=== PATIENT | female | born 1980 | race African-American/Black ===

== ENCOUNTER 2017-04-11 15:48 | Emergency (ER) | payer MEDICAID, OTHER ==
[2017-04-11] VITALS (11 sets, daily range): BP systolic 105–113; BP diastolic 56–66; PULSE 94–110; RESP 17–20
[~2017-04-11 15:48] MED LIST: PREN1CAP33 PO
--- NOTE | 2017-04-11 16:38 | PD ---
HPI Chief Complaint contractions Date Seen: Apr 11, 2017 Time Seen: 16:44 (Wilner Trujillo MD) Travel History International Travel<30 Days: No Contact w/Intl Traveler<30Days: No (Wilner Trujillo MD) History of Present Illness HPI 36 y/o at 34/4 weeks presents with contractions. She states that she was taking a shower last night and slipped, but caught herself against the wall. Denies any actual fall. Denies hitting her abdomen. She caught herself with her hands before falling. Since then, she states she's been having contractions every hour or two. Denies any vaginal bleeding, loss of fluids. Endorses movement. She sees [facility]. Denies any problems during this . Ever since she slipped, she has been having pelvic pressure as well. This is constant and having pelvic pain, 6/10 during the contractions. Otherwise, denies any fever/chills, chest pain, SOB, dysuria, leg pain/swelling. Weeks Gestation: 34 Para: 2 : 3 (Wilner Trujillo MD) History Past Medical History Medical History: Denies Significant Hx (Wilner Trujillo MD) Obstetric History Obstetric History 2 SVDs at term (Wilner Trujillo MD) Past Surgical History Surgical History: No Previous Surgery (Wilner Trujillo MD) Family History Family History: Negative (Wilner Trujillo MD) Social History Alcohol Use: No Tobacco Use: Yes (avg 5 cigs/day) Substance Abuse: No (Wilner Trujillo MD) Allergies-Medications (Allergen,Severity, Reaction): Coded Allergies: No Known Allergies (Verified Adverse Reaction, Unknown, 04/11/17) Home Meds Active Scripts Vit W/ Fe Polysacch C (Vitafol Fe+ 90-1-200 & 50 mg) 90 Mg Iron-1 Mg- 50 Mg-200 Mg Cap, 1 TAB PO DAILY, #30 BOTTLE 11 Refills Prov:Eunice Alfred 11/07/16 Review of Systems General / Constitutional: Weight Gain, No: Fever, Weight Loss, Chills, Other Eyes: No: Diploplia, Blurred Vision, Visual changes, Pain, Photophobia HENT: No: Headaches, Vertigo, Lightheadedness Cardiovascular: No: Irregular Rhythm, Chest Pain or Discomfort, Palpitations, Tachycardia, Syncope, Varicosities, Edema, Cyanosis Respiratory: No: Cough, Short of Breath, Other Gastrointestinal: No: Nausea, Vomiting, Diarrhea Genitourinary: Pelvic Pain, No: Urgency, Frequency, Dysuria, Decreased Urinary Output, Oliguria, Incontinence, Discharge, Vaginal Bleeding Musculoskeletal: No: Limited ROM, Weakness, Cramping, Edema, Pain Skin: No Rash, No Itching, No Dryness, No Lumps, No Change in Pigmentation, No Change in Nails, No Alopecia, No Lesions Neurologic: No: Weakness, Dizziness, Syncope, Focal Abnormalities, Coordination Problem, Headache, Slurred Speech, Seizures Psychiatric: No: Depression, Suicidal Ideations, Homicidal Ideation Endocrine: No: Heat Intolerance, Cold Intolerance, Polydipsia, Polyuria, Other (Wilenr Trujillo MD) Physical Exam Narrative GENERAL: Well-nourished, well-developed patient. SKIN: Warm and dry. HEAD: Normocephalic and atraumatic. EYES: No scleral icterus. No injection or drainage. ENT: No nasal drainage noted. Mucous membranes pink. Airway patent. NECK: Supple, trachea midline. No JVD. CARDIOVASCULAR: Regular rate and rhythm without murmurs, gallops, or rubs. RESPIRATORY: Breath sounds equal bilaterally. No accessory muscle use. ABDOMEN/GI: Abdomen soft, non-tender, bowel sounds present, no rebound, no guarding Gravid to 34 weeks size GENITOURINARY: External Genitalia: intact and normal in appearance Cervix: thick, high Dilatation: 0 Effacement: 0 Station: -2 Presentation: vertex Membranes: intact Uterine Contractions: q5-10 minutes FHT's: Category: 1 Baseline: 140 Reactive: yes Variability: moderate Decels: none EXTREMITIES: No cyanosis or edema. BACK: Nontender without obvious deformity. No CVA tenderness. NEUROLOGICAL: Awake and alert. Motor and sensory grossly within normal limits. Five out of 5 muscle strength in all muscle groups. Normal speech. (Wilner Trujillo MD) Data Data Vital Signs Reviewed: Yes (Wilner Trujillo MD) [facility] Medical Record Reviewed: Yes Interpretation(s) 36 y/o at 34/4 weeks presents with contractions. Category 1 FHT Cervical exam: 0/0/-2 -Monitor FHT for resolution of contractions -Urine dip -1L LR bolus, 50mcg Fentanyl IV, 0.25mg Terb SQ (Wilner Trujillo MD) Diagnosis Diagnosis: Primary Impression: contractions Additional Impression: 34 weeks gestation of Disposition: 01 DISCHARGE HOME Condition: Stable Wilner Trujillo MD Apr 11, 2017 16:38 Arnulfo Fraser II, MD Apr 11, 2017 18:20
[2017-04-11] MEDS ORDERED: LACTATED RINGER'S 1000 ML INJ 1,000 ML IV ONE (16:45)
[2017-04-11] MEDS ORDERED: TERBUTALINE INJ 1 MG/ML AMP SQ ONE ×2 (16:45→18:00)
== END 2017-04-11 19:22 | disposition home or self-care (01) ==
LOC: HOBED 15:48
DX: O47.03 False labor before 37 completed weeks of gestation, third trimester (principal); Z3A.34 34 weeks gestation of pregnancy
CPT/HCPCS: 59025; 96372; 96374; 99284; J3010; J3105; J7120

== ENCOUNTER 2017-05-13 00:47 | Emergency (ER) | payer MEDICAID ==
--- NOTE | 2017-05-13 01:33 | PD ---
HPI Chief Complaint Possible rupture membranes Date Seen: May 13, 2017 Time Seen: 01:29 Travel History International Travel<30 Days: No Contact w/Intl Traveler<30Days: No Known Affected Area: No History of Present Illness HPI 36-year-old who is at 39 weeks 1 day comes in due to watery vaginal discharge per vagina that occurred while she was in the shower. Patient states that no further fluid was expelled and denies any regular contractions although she has had a couple of irregular contractions. Last cervical exam was done and she was 1 cm. She does not know the results of her group B strep but she states she has had an uncomplicated course Weeks Gestation: 39 Para: 2 : 3 History Past Medical History Medical History: Denies Significant Hx Obstetric History Obstetric History Spontaneous vaginal delivery 2 Past Surgical History Surgical History: No Previous Surgery Family History Family History: Negative Social History Alcohol Use: No Tobacco Use: No Substance Abuse: No Allergies-Medications (Allergen,Severity, Reaction): Coded Allergies: No Known Allergies (Verified Adverse Reaction, Unknown, 04/11/17) Home Meds Active Scripts Vit W/ Fe Polysacch C (Vitafol Fe+ 90-1-200 & 50 mg) 90 Mg Iron-1 Mg- 50 Mg-200 Mg Cap, 1 TAB PO DAILY, #30 BOTTLE 11 Refills Prov:Eunice Alfred 11/07/16 Review of Systems Except as stated in HPI: all other systems reviewed are Neg Physical Exam Narrative GENERAL: Well-nourished, well-developed patient. SKIN: Warm and dry. HEAD: Normocephalic and atraumatic. EYES: No scleral icterus. No injection or drainage. ENT: No nasal drainage noted. Mucous membranes pink. Airway patent. NECK: Supple, trachea midline. No JVD. CARDIOVASCULAR: Regular rate and rhythm without murmurs, gallops, or rubs. RESPIRATORY: Breath sounds equal bilaterally. No accessory muscle use. ABDOMEN/GI: Abdomen soft, non-tender, bowel sounds present, no rebound, no guarding Gravid to [-] weeks size 39 Fundal Height: [-] GENITOURINARY: External Genitalia: intact and normal in appearance BUS glands: [-] Normal Cervix: [-] Posterior Dilatation: [-] 1 Effacement: [-] 50 Station: [-] -3 Presentation: [-] Vertex Membranes: [intact or ruptured] intact with a negative amateur Uterine Contractions: [-] Occasional irregular FHT's: Category: [-] 1 Baseline: [-] 130 Reactive: [-] Moderate Variability: [-] Moderate Decels: [-] Absent EXTREMITIES: No cyanosis or edema. BACK: Nontender without obvious deformity. No CVA tenderness. NEUROLOGICAL: Awake and alert. Motor and sensory grossly within normal limits. Five out of 5 muscle strength in all muscle groups. Normal speech. Data Data Vital Signs Reviewed: Yes [facility] Medical Record Reviewed: Yes Plan 36-year-old at 39 weeks 1 day with intact amniotic membranes, clinically patient has not ruptured and is her and be sure is negative Cervix is unchanged at 1 cm and there are no signs of labor Follow up with OB provider as scheduled on Sunday Diagnosis Diagnosis: Primary Impression: 39 weeks gestation of Additional Impression: Intact amniotic membranes during in third trimester Disposition: DISCHARGE HOME Carmen Mcgowan MD May 13, 2017 01:32
== END 2017-05-13 01:48 | disposition home or self-care (01) ==
LOC: HOBED 00:47
DX: O26.893 Other specified pregnancy related conditions, third trimester (principal); Z3A.39 39 weeks gestation of pregnancy
CPT/HCPCS: 59025; 84112

== ENCOUNTER 2017-05-14 00:18 | Inpatient (IN) | payer MEDICAID ==
[2017-05-14] VITALS (55 sets, daily range): BP systolic 89–127; BP diastolic 42–79; PULSE 66–192; RESP 16–20; TEMP 98.5–98.8
[~2017-05-14] VITALS: Ht 170.2 cm; Wt 104.0 kg
[2017-05-14] MEDS ORDERED: LACTATED RINGER'S 1000 ML INJ 1,000 ML IV PRN (00:57)
[2017-05-14] MEDS ORDERED: SODIUM CHLORID 0.9% 500 ML INJ 500 ML IV PRN (01:00)
[2017-05-14] MEDS ORDERED: ONDANSETRON HCL 4 MG/2 ML VIAL IV PUSH PRN (01:00)
[2017-05-14] MEDS ORDERED: MINERAL OIL 10 ML VIAL TOPICAL PRN (01:00)
[2017-05-14] MEDS ORDERED: LIDOCAINE HCL 1% 50 ML VIAL INFIL PRN (01:00)
[2017-05-14] MEDS ORDERED: OXYTOCIN 30 UNITS-500ML PREMIX 500 ML IV ONE (01:00)
[2017-05-14] MEDS ORDERED: LIDOCAINE HCL 1% 50 ML VIAL I-DERMAL PRN (01:00)
[2017-05-14] MEDS ORDERED: CITRIC ACID-SODIUM CITRATE LIQ 30 ML UDC PO SCH (01:00)
[2017-05-14] MEDS ORDERED: SODIUM CHLOR 0.9% 1000 ML INJ 1,000 ML IV PRN (01:17)
[2017-05-14 01:49] LABS: AUTOMATED NEUTROPHIL # 4.7 TH/MM3 (1.8-7.7); BASOPHIL # 0.1 TH/MM3 (0-0.2); BASOPHIL % 0.6 % (0.0-2.0); EOSINOPHIL # 0.1 TH/MM3 (0-0.4); HEMATOCRIT 33.2 % (35.0-46.0); HEMOGLOBIN 11.3 GM/DL (11.6-15.3); MEAN CELL VOLUME 92.9 FL (80.0-100.0); MEAN CORPUSCULAR HEMOGLOBIN 31.6 PG (27.0-34.0); MEAN PLATELET VOLUME 7.2 FL (7.0-11.0); MONO % 10.5 % (0.0-8.0); MONOCYTE # 0.9 TH/MM3 (0-0.9); NEUT % 53.9 % (16.0-70.0); PLATELET COUNT 326 TH/MM3 (150-450); RED BLOOD COUNT 3.57 MIL/MM3 (4.00-5.30); RED CELL DISTRIBUTION WIDTH 14.4 % (11.6-17.2); WHITE BLOOD COUNT 8.8 TH/MM3 (4.0-11.0)
[2017-05-14 01:53] LABS: BACTERIA, URINE OCC /hpf; BILIRUBIN, URINE NEG (NEG); BLOOD, URINE NEG (NEG); GLUCOSE,URINE NEG (NEG); KETONE, URINE NEG (NEG); MUCUS URINE FEW /lpf (OCC); NITRITE,URINE NEG (NEG); SQUAMOUS EPITHELIAL CELL URINE 20 /hpf (0-5); URINE COLOR YELLOW (YELLW/STRAW); URINE LEUKOCYTE ESTERASE TRACE (NEG)
[2017-05-14] MEDS ORDERED: fentaNYL 2MCG-BUPIV 0.125% INJ 100 ML ONE (01:55)
--- NOTE | 2017-05-14 01:57 | HHI.HP ---
History & Physical H&P HPI Chief Complaint ctxs Date Seen: May 14, 2017 Time Seen: 01:49 Travel History International Travel<30 Days: No Contact w/Intl Traveler<30Days: No Known Affected Area: No History of Present Illness HPI pt. is a 36 y/o @ 39 2/7 weeks present w/ c/o ctxs. pt. previously seen on am 3/4 w/ ctxs and 1 cm. present now w/ increasing freq and intensity. +FM, no lof/vb. per nursing cervix 4 cm and pt. very uncomfortable. Weeks Gestation: 39 Para: 2 : 3 History (Limited) History Past Medical History Medical History: Denies Significant Hx Obstetric History Obstetric History , x 2 Past Surgical History Surgical History: No Previous Surgery Family History Family History: Negative Social History Alcohol Use: No Tobacco Use: Yes Substance Abuse: No Allergies-Medications Allergies-Medications (Allergen,Severity, Reaction): Coded Allergies: No Known Allergies (Verified Adverse Reaction, Unknown, 05/14/17) Home Meds Active Scripts Vit W/ Fe Polysacch C (Vitafol Fe+ 90-1-200 & 50 mg) 90 Mg Iron-1 Mg- 50 Mg-200 Mg Cap, 1 TAB PO DAILY, #30 BOTTLE 11 Refills Prov:Eunice Alfred 11/07/16 ROS Review of Systems Except as stated in HPI: all other systems reviewed are Neg Physical Exam Physical Exam Narrative GENERAL: Well-nourished, well-developed patient. SKIN: Warm and dry. HEAD: Normocephalic and atraumatic. EYES: No scleral icterus. No injection or drainage. ENT: No nasal drainage noted. Mucous membranes pink. Airway patent. NECK: Supple, trachea midline. No JVD. CARDIOVASCULAR: Regular rate and rhythm without murmurs, gallops, or rubs. RESPIRATORY: Breath sounds equal bilaterally. No accessory muscle use. ABDOMEN/GI: Abdomen soft, non-tender, bowel sounds present, no rebound, no guarding Gravid GENITOURINARY: Dilatation: 4 Effacement: 60 Station: 0 Presentation: cephalic Membranes: intact Uterine Contractions: q 3 min FHT's: Category: 2 Reactive: + Variability: mod Decels: miguel ángel EXTREMITIES: No cyanosis or edema. BACK: Nontender without obvious deformity. No CVA tenderness. NEUROLOGICAL: Awake and alert. Motor and sensory grossly within normal limits. Five out of 5 muscle strength in all muscle groups. Normal speech. Data Data Data Vital Signs Reviewed: Yes Orders Orders Ob (2e) Additional Admit Info (05/14/17 00:57) Admit To Inpatient (05/14/17 ) Vital Signs (Adult) .Per protocol (05/14/17 00:57) Heart (05/14/17 00:57) Amnioinfusion (05/14/17 00:57) Urinary Catheter Management .ONCE (05/14/17 00:57) Diet Liquid (05/14/17 Breakfast) Lactated Ringer's 1000 Ml Inj (Lr 1000 M (05/14/17 00:57) Lactated Ringer's 1000 Ml Inj (Lr 1000 M (05/14/17 00:57) Sodium Chlorid 0.9% 500 Ml Inj (Ns 500 M (05/14/17 01:00) Sodium Chlor 0.9% 1000 Ml Inj (Ns 1000 M (05/14/17 01:17) Lidocaine 1% Inj (50 Ml) (Xylocaine 1% I (05/14/17 01:00) Citric Acid-Sodium Citrate Liq (Bicitra (05/14/17 01:00) Ondansetron Inj (Zofran Inj) (05/14/17 01:00) Fentanyl Inj (Fentanyl Inj) (05/14/17 01:00) Fentanyl Inj (Fentanyl Inj) (05/14/17 01:00) Complete Blood Count With Diff (05/14/17 00:57) Hold Clot (05/14/17 00:57) Abo/Rh Blood Type (05/14/17 00:57) Urinalysis - C+S If Indicated (05/14/17 00:57) Drug Screen, Random Urine (05/14/17 00:57) Ob/Psych Drug Screen, Urine (05/14/17 00:57) Resp Oxygen Non Rebreathe Mask (05/14/17 ) ^ Epidural / Intrathecal Infus (05/14/17 00:57) Oxytocin 30 Units-500ml Premix (Pitocin (05/14/17 01:00) Lidocaine 1% Inj (50 Ml) (Xylocaine 1% I (05/14/17 01:00) Light Mineral Oil (Muri-Lube Oil) (05/14/17 01:00) Inpatient Certification (05/14/17 ) Labs Laboratory Tests Test 05/14/17 00:25 05/14/17 01:35 [facility] Medical Record Reviewed: Yes Plan pt. in active labor. pt. to be admitted. pt. gbs unknown at term, no tx. efm/ peter. fht reassuring. will continue to follow. Diagnosis Diagnosis: Primary Impression: Uterine contractions during Additional Impression: 39 weeks gestation of Kp Woodson Jr., MD May 14, 2017 01:57
[2017-05-14] MEDS: LACTATED RINGER'S 1000 ML INJ 1,000 ML IV SCH ×2 (02:22→07:40)
[2017-05-14] MEDS ORDERED: fentaNYL 2MCG-BUPIV 0.125% 100 ML EPIDURAL SCH (02:45)
[2017-05-14] MEDS ORDERED: DO NOT ADMINISTER ANTICOAGULANTS PRN (02:45)
[2017-05-14] MEDS ORDERED: NO SYSTEM NARCOTICS PRN (02:45)
[2017-05-14] MEDS ORDERED: ePHEDrine/NS 25 MG/5 ML SYRINGE IV PUSH PRN (03:00)
--- NOTE | 2017-05-14 08:14 | PD.LABORPN ---
Subjective Subjective pt. comfortable in bed. pt. receive epidural ~0220. +FM, no vb. pt. feeling pelvic pressure. Objective Vital Signs Vital Signs Date Time Temp Pulse Resp B/P (MAP) Pulse Ox O2 Delivery O2 Flow Rate FiO2 05/14/17 07:32 78 17 109/71 (84) 05/14/17 07:15 84 119/66 (83) 05/14/17 06:45 81 110/72 (85) 05/14/17 06:34 18 05/14/17 06:30 78 05/14/17 06:16 116/71 (86) 05/14/17 06:16 137 05/14/17 06:01 79 102/54 (70) 05/14/17 05:45 98.7 78 120/68 (85) 05/14/17 05:34 20 05/14/17 05:30 72 05/14/17 05:08 18 05/14/17 05:00 90 93/56 (68) 05/14/17 04:45 82 96/64 (75) 05/14/17 04:35 16 05/14/17 04:30 76 92/46 (61) 05/14/17 04:15 98.5 77 106/54 (71) 05/14/17 04:14 16 05/14/17 04:00 79 98/54 (69) 05/14/17 03:49 74 105/52 (69) 05/14/17 03:45 18 05/14/17 03:44 73 93/51 (65) 05/14/17 03:30 79 89/43 (58) 05/14/17 03:17 18 05/14/17 03:15 75 93/42 (59) 05/14/17 03:00 74 18 05/14/17 02:45 18 05/14/17 02:45 101/49 (66) 05/14/17 02:45 80 05/14/17 02:39 82 107/55 (72) 05/14/17 02:31 91/45 (60) 05/14/17 02:28 121/70 (87) 05/14/17 02:24 86 05/14/17 02:24 109/63 (78) 05/14/17 02:22 18 05/14/17 02:21 92/69 (77) 05/14/17 02:19 73 115/60 (78) 05/14/17 02:18 20 05/14/17 02:17 84 119/62 (81) 05/14/17 02:00 82 05/14/17 01:59 124/64 (84) 05/14/17 01:59 84 20 Objective Pelvic Exam: Dilatation: 9 (thick, anterior lip) Effacement: 100 Station: 0 Presentation: cephalic Membranes: ruptured Uterine Contractions: q2-3min FHT's: Category: 2 Baseline: 130 Reactive: + Variability: mod Decels: miguel ángel Weeks Gestation: 39 Medical induction of labor?: No Assessment/Plan Problem List: (1) 39 weeks gestation of ICD Codes: Z3A.39 - 39 weeks gestation of Status: Acute (2) Uterine contractions during ICD Codes: O62.2 - Other uterine inertia Status: Acute Assessment and Plan 36 y/o in active labor. pt. progressing will allow pt. to labor down as still has anterior lip. pt. cat 2 tracing 2/2 variables. fht reassuring. will continue to follow. Kp Woodson Jr., MD May 14, 2017 08:14
--- NOTE | 2017-05-14 10:31 | HHI.PR ---
CORRESPONDENCE COORDINATOR Note Note Patient is C/C/0 station straight OP presentation. Attempted to manually rotate the head but unable to move position. Patient has not been attempting to push. Will change patient positioning to assist with head rotation. If the head remains OP will still attempt a vaginal delivery given her two prior successful deliveries. FHR 140, reactive, Category 1. Carmen Mcgowan MD May 14, 2017 10:31
--- NOTE | 2017-05-14 11:54 | PD.OB.DELI ---
Weeks gestation: 39 Pt started active labor?: Yes Medical induction of labor?: No Artificial rupture of membrane: No Anesthesia: Epidural Episiotomy: None Vaginal Delivery: Normal Presentation: Occiput anterior Nuchal Cord: None Delayed cord clamping (45 sec): Yes : Female Delivery date: May 14, 2017 Delivery time: 11:36 One Minute : 8 Five Minute : 9 Weight: Mom declines weight at this time for skin to skin Placenta: Spontaneous delivery, Intact, 3 vessel cord Laceration: No lacerations Estimated blood loss: 100 Rashi Luis MD R1 May 14, 2017 11:54
[2017-05-14] MEDS ORDERED: SODIUM CHLORIDE 0.9% FLUSH 10 ML FLUSH IV FLUSH PRN (13:30)
[2017-05-14] MEDS ORDERED: OXYTOCIN 30 UNITS-500ML PREMIX 500 ML IV SCH (13:30)
[2017-05-14] MEDS ORDERED: ZOLPIDEM TARTRATE 5 MG TAB PO PRN (13:30)
[2017-05-14] MEDS ORDERED: DOCUSATE SODIUM 50 MG/SENNA 8.6 MG TAB PO PRN (13:30)
[2017-05-14] MEDS ORDERED: ALUMINUM/MAGNESIUM/SIMETH 30 ML CUP PO PRN (13:30)
[2017-05-14] MEDS ORDERED: BENZOCAINE 20% TOPICAL SPRAY 60 ML CAN TOPICAL PRN (13:30)
[2017-05-14] MEDS ORDERED: ONDANSETRON ODT 4 MG TAB PO PRN (13:30)
[2017-05-14] MEDS ORDERED: ACETAMINOPHEN 325 MG TAB PO PRN (13:30)
[2017-05-14] MEDS ORDERED: WITCH HAZEL 50%/GLYCERIN 12.5% 40 PAD JAR TOPICAL PRN (13:30)
[2017-05-14] MEDS: IBUPROFEN 800 MG TAB PO PRN ×2 (14:18→22:16)
[2017-05-14] MEDS ORDERED: DIPHTH/TETANUS/ACEL PERTUSSIS (BOOSTER) 0.5 ML VIAL/PFS IM ONE (16:00)
[2017-05-14] MEDS ORDERED: MEASLES, MUMPS, RUBELLA VACCINE 0.5 ML VIAL SQ ONE (16:00)
[2017-05-14] MEDS ORDERED: SODIUM CHLORIDE 0.9% FLUSH 10 ML FLUSH IV FLUSH SCH (21:00)
[2017-05-15] MEDS: IBUPROFEN 800 MG TAB PO PRN ×2 (07:58→15:33)
[2017-05-15 08:00] VITALS: BP 112/65; PULSE 68; RESP 18; TEMP 98.2
--- NOTE | 2017-05-15 09:00 | HHI.OB ---
Subjective Post Day: 1 Remarks day #1 AFVSS overnight. Decreased lochia. Denies dysuria. No breast tenderness. She is feeding the baby via breast. Appetite good. No nausea or vomiting. Ambulating well. Denies calf pain or shortness of breath. Otherwise, she is doing well this morning and has no other complaints. Objective Vitals/I&O Vital Signs Date Time Temp Pulse Resp B/P (MAP) Pulse Ox O2 Delivery O2 Flow Rate FiO2 05/14/17 22:00 98.6 66 18 05/14/17 22:00 119/66 (83) 05/14/17 15:00 98.7 90 16 120/74 (89) 05/14/17 14:00 17 05/14/17 13:46 82 115/71 (86) 05/14/17 13:28 83 119/55 (76) 05/14/17 13:00 98.8 05/14/17 13:00 18 05/14/17 12:13 18 05/14/17 12:03 89 113/55 (74) 05/14/17 10:01 71 122/54 (76) 05/14/17 09:45 192 127/79 (95) 05/14/17 09:30 17 05/14/17 09:15 80 114/64 (81) 05/14/17 09:15 18 Objective Remarks GENERAL: Well-nourished, well-developed patient. CARDIOVASCULAR: Regular rate and rhythm without murmurs, gallops, or rubs. RESPIRATORY: Breath sounds equal bilaterally. No accessory muscle use. ABDOMEN/GI: Abdomen soft, non-tender. Fundus: Firm, non-tender at umbilicus. GENITOURINARY: Light to moderate bleeding. EXTREMITIES: No cyanosis or edema, non-tender, without signs of DVT. Medications and IVs Current Medications Medications (Trade) Dose Ordered Sig/Josemanuel Route Start Time Stop Time Status Last Admin Fentanyl/ Bupivacaine HCl 100 ml @ 12 mls/hr TITRATE EPIDURAL 05/14/17 02:45 05/14/17 08:17 (NS Flush) 2 ml BID IV FLUSH 05/14/17 21:00 (NS Flush) 2 ml UNSCH PRN IV FLUSH 05/14/17 13:30 (Tylenol) 650 mg Q4H PRN PO 05/14/17 13:30 (Motrin) 800 mg Q8H PRN PO 05/14/17 13:30 05/15/17 07:58 (Americaine 20% Top Spr) 1 spray Q4H PRN TOPICAL 05/14/17 13:30 05/14/17 14:18 (Tucks Pads) 1 applic QID PRN TOPICAL 05/14/17 13:30 05/14/17 14:18 (Kaila-Colace) 2 tab Q12H PRN PO 05/14/17 13:30 (Ambien) 5 mg HS PRN PO 05/14/17 13:30 (Mag-Al Plus Susp Liq) 15 ml Q8H PRN PO 05/14/17 13:30 (Zofran Odt) 4 mg Q6H PRN PO 05/14/17 13:30 Assessment/Plan Problem List: (1) 39 weeks gestation of ICD Codes: Z3A.39 - 39 weeks gestation of Status: Acute (2) Uterine contractions during ICD Codes: O62.2 - Other uterine inertia Status: Acute Assessment and Plan 36y/o female who is PPD#1 s/p . -Continue routine care. -Motrin PRN pain. -Encouraged OOB. Advised pelvic rest for 6 wks. -Re: ctrl, she would like to follow-up with primary care for possible NuvaRing placement. -D/c likely tomorrow. TOBI Luis,Rashi Carter MD R1 May 15, 2017 09:00
[2017-05-15 20:30] VITALS: BP 121/69
[2017-05-16] MEDS: IBUPROFEN 800 MG TAB PO PRN ×2 (00:55→10:22)
--- NOTE | 2017-05-16 07:17 | HHI.OB ---
Subjective Post Day: 2 Remarks day #2 AFVSS overnight. Decreased lochia. Denies dysuria. No breast tenderness. She is feeding the baby via breast. Appetite good. No nausea or vomiting. Ambulating well. Denies calf pain or shortness of breath. Otherwise, she is doing well this morning and has no other complaints. Objective Vitals/I&O Vital Signs Date Time Temp Pulse Resp B/P (MAP) Pulse Ox O2 Delivery O2 Flow Rate FiO2 05/15/17 20:30 121/69 (86) 05/15/17 08:00 98.2 68 18 112/65 (81) Objective Remarks GENERAL: Well-nourished, well-developed patient. CARDIOVASCULAR: Regular rate and rhythm without murmurs, gallops, or rubs. RESPIRATORY: Breath sounds equal bilaterally. No accessory muscle use. ABDOMEN/GI: Abdomen soft, non-tender. Fundus: Firm, non-tender at umbilicus. GENITOURINARY: Light to moderate bleeding. EXTREMITIES: No cyanosis or edema, non-tender, without signs of DVT. Medications and IVs Current Medications Medications (Trade) Dose Ordered Sig/Josemanuel Route Start Time Stop Time Status Last Admin Fentanyl/ Bupivacaine HCl 100 ml @ 12 mls/hr TITRATE EPIDURAL 05/14/17 02:45 05/14/17 08:17 (NS Flush) 2 ml BID IV FLUSH 05/14/17 21:00 (NS Flush) 2 ml UNSCH PRN IV FLUSH 05/14/17 13:30 (Tylenol) 650 mg Q4H PRN PO 05/14/17 13:30 (Motrin) 800 mg Q8H PRN PO 05/14/17 13:30 05/16/17 00:55 (Americaine 20% Top Spr) 1 spray Q4H PRN TOPICAL 05/14/17 13:30 05/14/17 14:18 (Tucks Pads) 1 applic QID PRN TOPICAL 05/14/17 13:30 05/14/17 14:18 (Kaila-Colace) 2 tab Q12H PRN PO 05/14/17 13:30 (Ambien) 5 mg HS PRN PO 05/14/17 13:30 (Mag-Al Plus Susp Liq) 15 ml Q8H PRN PO 05/14/17 13:30 (Zofran Odt) 4 mg Q6H PRN PO 05/14/17 13:30 Assessment/Plan Problem List: (1) 39 weeks gestation of ICD Codes: Z3A.39 - 39 weeks gestation of Status: Acute (2) Uterine contractions during ICD Codes: O62.2 - Other uterine inertia Status: Acute Assessment and Plan 36y/o female who is PPD#2 s/p . -Continue routine care. -Motrin PRN pain. -Encouraged OOB. Advised pelvic rest for 6 wks. -Re: ctrl, she would like to follow-up with primary care for possible NuvaRing placement. -D/c likely today DW Dr. Kandice Luis,Rashi Carter MD R1 May 16, 2017 07:17
[2017-05-16] MEDS ORDERED: PERI PO (07:19)
[2017-05-16] MEDS ORDERED: IBUP1TAB7 PO (07:19)
--- NOTE | 2017-05-16 07:20 | HHI.DCPOC ---
Discharge Care Plan Diagnosis: (1) Vaginal delivery Report Symptoms to Your Doctor -Temperature above 100.5 degrees -Redness, of incision or excessive or foul smelling drainage -Unusual pain or calf pain -Increased vaginal bleeding -Painful or difficulty urinating -Feelings of extreme sadness or anxiety after 2 weeks Goals to Promote Your Health * To prevent worsening of your condition and complications * To maintain your health at the optimal level Directions to Meet Your Goals Take your medications as prescribed Follow your dietary instruction Follow activity as directed Ensure plenty of rest for recovery Drink fluids for hydration Keep your appointments as scheduled Take your immunizations and boosters as scheduled If your symptoms worsen call your PCP, if no PCP go to Urgent Care Center or Emergency Room Smoking is Dangerous to Your Health. Avoid second hand smoke Call the 24-hour crisis hotline for domestic abuse at Rashi Luis MD R1 May 16, 2017 07:20
== END 2017-05-16 14:46 | disposition home or self-care (01) | DRG 775 ==
LOC: HOBED 00:18 → H2EA 01:00 → H1EA 14:26
PROVIDERS: ADMIT Obstetrics & Gynecology; ATTEND Obstetrics & Gynecology
PROC: 10E0XZZ Delivery of Products of Conception, External Approach (ICD-10-PCS; principal; 2017-05-14)
PROC: 3E0R3BZ Introduction of Anesthetic Agent into Spinal Canal, Percutaneous Approach (ICD-10-PCS; 2017-05-14)
PROC: 00HU33Z Insertion of Infusion Device into Spinal Canal, Percutaneous Approach (ICD-10-PCS; 2017-05-14)
DX: O99.334 Smoking (tobacco) complicating childbirth (principal); Z37.0 Single live birth; Z3A.39 39 weeks gestation of pregnancy
CPT/HCPCS: 59025; 80307; 81001; 84112; 85025; 86900; 86901; G0481; J2590; J7120